=== PATIENT | female | born 2000 | race Caucasian/White ===

== ENCOUNTER 2024-02-18 08:55 | Day surgery (SDC) | payer BC ==
[~2024-02-18] VITALS: Ht 162.6 cm; Wt 140.0 kg
--- NOTE | ~2024-02-18 | OR ---
[facility] [address] [place], [place] [address] Draft DATE OF OPERATION: 02/18/2024 SURGEON: Adeel Mills MD PREOPERATIVE DIAGNOSIS: Chronic tonsillitis. POSTOPERATIVE DIAGNOSIS: Chronic tonsillitis. PROCEDURE: Tonsillectomy. ANESTHESIA: General orotracheal; [employer], Alexis. PREOPERATIVE HISTORY: Chana is a 23-year-old young lady with chronic tonsillitis, multiple infections, taken to the operating room for the above-mentioned procedures. OPERATIVE PROCEDURE AND FINDINGS: After patient consent, the patient was taken to the operating room, placed in supine position where general orotracheal anesthesia was induced. The patient and procedure were verified. The patient was repositioned. McIvor mouth gag placed into suspension. Headlight exam of the pharynx showed moderately hypertrophic cryptic tonsils, mildly inflamed. The left tonsil was grasped with a tenaculum, retracted medially, and removed from its fossa with mucosal sparing incisions with Coblation. The field was dry after the procedure, same procedure on the right tonsil. Tonsils were sent to pathology. The mouth gag was released for several minutes. Reinspection showed no bleeding points. The pharynx was suctioned clear of blood and secretions. Mouth gag was removed. The patient was awakened, extubated, transported to recovery room in good condition. No complications. BLOOD LOSS: Minimal. SPECIMEN: To pathology. DRAINS: PATIENT NAME: CHANA MARLEY OPERATIVE REPORT DATE OF : 00 REPORT #: [id number] PHYSICIAN: ADEEL MILLS MD PCP: WILLIAM MEEKS REPORT IS CONFIDENTIAL AND NOT TO BE RELEASED WITHOUT AUTHORIZATION [address] [place] [address] Draft None. Adeel Mills MD GC/SUDHA /[id number] Copies: ~ PATIENT NAME: CHANA MARLEY OPERATIVE REPORT DATE OF : 00 REPORT #: [id number] PHYSICIAN: ADEEL MILLS MD PCP: WILLIAM MEEKS REPORT IS CONFIDENTIAL AND NOT TO BE RELEASED WITHOUT AUTHORIZATION
[~2024-02-18 08:55] MED LIST: ADDERALL 10 MG10 MG PO; IBLOOD GLUCOSE TEST STRIP 1 EA TEST VI PRN; LACTATED RINGER'S 1,000 ML IV SCH; LAMICTAL100 MG PO; LIDOCAINE HCL 1% 5 ML SDV INJ ONE; PROZAC20 MG PO; SPRINTEC1 EACH PO
[2024-02-18 09:05] VITALS: BP 156/86
[2024-02-18] MEDS ORDERED: ACETAMINOPHEN 1,000 MG/100 ML VIAL ONE (09:16)
[2024-02-18] MEDS ORDERED: LIDOCAINE HCL 2% 5 ML SDV ONE (09:39)
[2024-02-18] MEDS ORDERED: DEXAMETHASONE SOD PHOS 4 MG/ML VIAL ONE (09:39)
[2024-02-18] MEDS ORDERED: ondansetron HCL 4 MG/2 ML VIAL ONE (09:39)
[2024-02-18] MEDS ORDERED: SUGAMMADEX SODIUM 200 MG/2 ML ML ONE (09:39)
[2024-02-18] MEDS ORDERED: propofoL 200 MG/20 ML VIAL ONE (09:39)
[2024-02-18] MEDS ORDERED: ROCURONIUM BROMIDE 50 MG/5 ML SYR ONE (09:39)
[2024-02-18] MEDS ORDERED: MIDAZOLAM HCL 2 MG/2 ML VIAL ONE (09:40)
[2024-02-18] MEDS ORDERED: fentaNYL citrate 100 MCG/2 ML VIAL ONE ×2 (09:40→10:41)
[2024-02-18] MEDS ORDERED: HYDROmorphone HCL 1 MG/ML SYR IV PRN (09:45)
[2024-02-18] MEDS ORDERED: fentaNYL citrate 50 MCG/ML SDV IV PRN (09:45)
[2024-02-18] MEDS ORDERED: NALOXONE HCL 0.4 MG SYR IV PRN (09:45)
[2024-02-18] MEDS ORDERED: PROCHLORPERAZINE EDISYLATE 10 MG/2 ML VIAL IV PRN (09:45)
[2024-02-18] MEDS ORDERED: ondansetron HCL 4 MG/2 ML VIAL IV PRN (09:45)
[2024-02-18] MEDS ORDERED: droPERidol 5 MG/2 ML VIAL IV PRN (09:45)
[2024-02-18] MEDS ORDERED: IBLOOD GLUCOSE TEST STRIP 1 EA TEST VI PRN (09:45)
[2024-02-18] MEDS ORDERED: dexmedeTOMIDine HCl 200 MCG/2 ML VIAL ONE (10:22)
--- NOTE | 2024-02-18 11:28 | NUR ---
02/18/24 1128 Griselda Quintana 1107 PT ARRIVED IN PACU NON RESPONSIVE TO NOXIOUS STIMULI WITH OPA IN PLACE. CHIN LIFT HELD BY RN. 1112 PT REACTIVE. OPA REMOVED. 1125 C/O THROAT PAIN 4-5/10 AND TOLERABLE. GLASSES RETURNED TO PT.
[2024-02-18 11:38] VITALS: BP 138/68
--- NOTE | 2024-02-18 11:43 | NUR ---
1133 PT ARRIVED FROM PACU TO DAY SURGERY VIA STRECHER. PT AWAKE AND ORIENTED BUT DROWSEY. PT A LITTLE EMOTIONAL. PT MOM AT BEDSIDE. PT BREATHING EQUAL AND UNLABORED. 1135 VITALS TAKEN. PT TOLERABLE LEVEL OF PAIN 5/10 PAIN. PT WANTS TO GET SOME FOOD IN STOMACH AND THEN GET SOME PAIN MEDICATION ON BOARD. PT ABLE TO TOLERATE PO PUDDING AND WATER.
[2024-02-18] MEDS ORDERED: ACETA/HYDROCODONE 325/7.5 15 ML BTL PO PRN (11:45)
[2024-02-18 12:36] VITALS: BP 151/72
--- NOTE | 2024-02-18 13:08 | NUR ---
1235 VITALS TAKEN. PT REPORTS 2/10 TOLERABLE LEVEL OF PAIN. PT IV ASSESSED. 1245 PT ABLE TO AMBULATE TO BATHROOM AND VOID 300 MLS URINE. DISCHARGE INFORMATION GONE OVER WITH PT AND MOM AT BEDSIDE. NO FURTHER QUESTIONS AT THIS TIME. IV DEACCESSED. PT ABLE TO DRESS ON OWN. PRESCRIPTION GIVEN TO PT MOM. 1300 PT DISCHARGED FROM [facility] VIA WHEELCHAIR TO FRONT OF HOSPITAL TO MOM'S CAR.
--- NOTE | 2024-02-21 17:22 | PATH ---
[facility] [address] [place], [place] [address] Signed SPECIMEN(S): A LEFT AND RIGHT TONSIL SPECIMEN SOURCE: A. LEFT AND RIGHT TONSIL CLINICAL HISTORY: Chronic tonsillitis FINAL PATHOLOGIC DIAGNOSIS: Tonsils, left and right, tonsillectomies: - Tonsillar tissue as grossly described; gross diagnosis only BRP MICROSCOPIC EXAMINATION: Histologic sections of all submitted blocks are examined by light microscopy. These findings, together with the gross examination, support the pathologic diagnosis. GROSS DESCRIPTION: The specimen, labeled and designated "Connall, left and right tonsil," is received in formalin and consists of two de la torre-brown to chowdary undesignated tonsils (3.1 x 2.0 x 1.5 cm, and 3.0 x 2.0 x 1.5 cm). One of the tonsils is arbitrarily inked blue. Both tonsils are serially sectioned to chowdary-brown convoluted cut surfaces with yellow-white friable material within the tonsillar crypts. The specimen is submitted for gross examination only. VB (under the direct supervision of a pathologist) The Gross Description was prepared using a voice recognition system. The report was reviewed for accuracy; however, sound-alike word errors, addition and/or deletions may occur. If there is any question about this report, please contact Client Services. ADDITIONAL NOTES: Immunohistochemical and/or in situ hybridization studies if performed in this case included appropriate positive controls that reacted as expected. This test was developed and its performance characteristics determined by [facility]. It has not been cleared or approved by the U.S. Food and Drug Administration. The FDA has determined that such clearance or approval is not necessary. This test is used for clinical purposes. It should not be regarded as investigational or for research. [facility] is certified under the PATIENT NAME: CHANA MARLEY PATHOLOGY DATE OF : 00 REPORT #: [id number] PHYSICIAN: [facility] PCP: WILLIAM MEEKS REPORT IS CONFIDENTIAL AND NOT TO BE RELEASED WITHOUT AUTHORIZATION [facility] [address] [place], [place] [address] Signed Clinical Laboratory Improvement Amendments of 1988 (CLIA) as qualified to perform high complexity clinical laboratory testing. PERFORMING LABORATORY: Technical component was performed by [facility], [address] [place] [address] (CLIA# [id number]). Professional interpretation was performed by [facility] [address] [place] [phone] [id number] Diagnostician: Kain Tovar MD Pathologist Electronically Signed 02/21/2024 Copies: ~ PATIENT NAME: CHANA MARLEY PATHOLOGY DATE OF : 00 REPORT #: [id number] PHYSICIAN: [facility] PCP: WILLIAM MEEKS REPORT IS CONFIDENTIAL AND NOT TO BE RELEASED WITHOUT AUTHORIZATION
== END 2024-02-18 13:00 | disposition home or self-care (01) ==
LOC: DS 08:55 → OPS 08:55 → DS 10:30 → OPS 10:30
PROVIDERS: ATTEND Otolaryngology
PROC: 0CTPXZZ Resection of Tonsils, External Approach (ICD-10-PCS; principal; 2024-02-18 10:30)
DX: J35.01 Chronic tonsillitis (principal); J35.8 Other chronic diseases of tonsils and adenoids; J02.0 Streptococcal pharyngitis; Z88.1 Allergy status to other antibiotic agents; Z79.899 Other long term (current) drug therapy
CPT/HCPCS: 00170; J0131; J1100; J2001; J2250; J2405; J2704; J3010; J3490; J7121